=== PATIENT | female | born 1955 | race Caucasian/White ===

== ENCOUNTER 2018-04-12 09:17 | Emergency (ER) | payer BC ==
[2018-04-12 09:32] VITALS: BP 153/75
--- NOTE | 2018-04-12 10:37 | UC ---
Throat Pain/Nasal Alejandro HPI - HPI Summary HPI Summary: sore throat x 3 days + nasal congestion , pnd, no fever, no chills no cough - History of Current Complaint Chief Complaint: UCGeneralIllness Stated Complaint: ST,[place],CONGESTION Time Seen by Provider: 04/12/18 09:35 Hx Obtained From: Patient ?: No Onset/Duration: Gradual Onset, Lasting Days - 3, Still Present Severity: Moderate Pain Intensity: 3 Pain Scale Used: 0-10 Numeric Cough: None Associated Signs & Symptoms: Positive: Nasal Discharge. Negative: Dysphagia, FB Sensation, Drooling, Wheezing, Hoarseness, Sinus Discomfort, Fever, Vomiting , Rash - Allergies/Home Medications Allergies/Adverse Reactions: Allergies Allergy/AdvReac Type Severity Reaction Status Date / Time No Known Allergies Allergy Verified 04/12/18 09:29 Home Medications: Home Medications D-Methorphan/PE/Acetaminophen [[place] Plus Day Col] 1 cap PO SEE INSTRUCTIONS PRN 04/12/18 [History Confirmed 04/12/18] Dextromethorphan Hb/Doxylamine [Robitussin Nighttime Cough Dm] 10 ml PO Q6H PRN 04/12/18 [History Confirmed 04/12/18] Omeprazole CAP* [Prilosec CAP* 20 MG] 20 mg PO BID 04/12/18 [History Confirmed 04/12/18] Rosuvastatin Calcium 10 mg PO DAILY 04/12/18 [History Confirmed 04/12/18] PMH/Surg Hx/FS Hx/Imm Hx GI/ History: Gastroesophageal Reflux - Surgical History Surgical History: Yes Surgery Procedure, Year, and Place: C-Sections x 2 - Family History Known Family History: Negative: Diabetes - Social History Alcohol Use: Occasionally Substance Use Type: None Smoking Status (MU): Never Smoked Tobacco Review of Systems Constitutional: Negative Skin: Negative Eyes: Negative ENT: Sore Throat, Nasal Discharge Respiratory: Negative Cardiovascular: Negative Is Patient Immunocompromised?: No All Other Systems Reviewed And Are Negative: Yes Physical Exam Triage Information Reviewed: Yes Appearance: Well-Appearing, No Pain Distress, Well-Nourished Vital Signs: Initial Vital Signs Temp 97.5 F 04/12/18 09:27 Pulse 85 04/12/18 09:27 Resp 16 04/12/18 09:27 BP 153/75 04/12/18 09:27 Pulse Ox 99 04/12/18 09:27 Vital Signs Reviewed: Yes Eye Exam: Normal Eyes: Positive: Conjunctiva Clear ENT: Positive: Normal ENT inspection, Hearing grossly normal, Pharyngeal erythema, Nasal drainage. Negative: TM bulging, TM dull, TM red, Tonsillar swelling, Tonsillar exudate Neck: Positive: Supple, Nontender, No Lymphadenopathy Respiratory: Positive: Chest non-tender, Lungs clear, Normal breath sounds Cardiovascular: Positive: RRR, No Murmur, Pulses Normal Abdominal Exam: Normal Skin Exam: Normal Throat Pain/Nasal Course/Dx - Differential Dx/Diagnosis Provider Diagnoses: phayngitis Discharge - Sign-Out/Discharge Documenting (check all that apply): Patient Departure All imaging exams completed and their final reports reviewed: No Studies - Discharge Plan Condition: Stable Disposition: HOME Patient Education Materials: Pharyngitis (ED) Referrals: Milton Monroy MD [Primary Care Provider] - If Needed Additional Instructions: viral illness no need for antibiotic - Billing Disposition and Condition Condition: STABLE Disposition: Home
== END 2018-04-12 09:43 | disposition home or self-care (01) ==
LOC: UCCORT 09:17
DX: J02.9 Acute pharyngitis, unspecified (principal); K21.9 Gastro-esophageal reflux disease without esophagitis
CPT/HCPCS: 99211; G0463

== ENCOUNTER 2018-04-17 11:58 | Emergency (ER) | payer BC ==
[2018-04-17 12:22] VITALS: BP 152/86
--- NOTE | 2018-04-17 12:51 | UC ---
Throat Pain/Nasal Alejandro HPI - HPI Summary HPI Summary: Pt c/o ST and left ear pain. ST X 7 days. Ear pain X 3 days. - History of Current Complaint Chief Complaint: UCGeneralIllness Stated Complaint: SORE THROAT,EAR PAIN (L) Time Seen by Provider: 04/17/18 12:44 Hx Obtained From: Patient ?: No Onset/Duration: Sudden Onset, Lasting Days, Still Present Severity: Moderate Pain Intensity: 6 Cough: None Associated Signs & Symptoms: Positive: Dysphagia - Epiglottits Risk Factors Epiglottis Risk Factors: Sudden Onset - Allergies/Home Medications Allergies/Adverse Reactions: Allergies Allergy/AdvReac Type Severity Reaction Status Date / Time No Known Allergies Allergy Verified 04/12/18 09:29 Home Medications: Home Medications Ibuprofen [Advil] 800 mg PO ONCE 04/17/18 [History Confirmed 04/17/18] PMH/Surg Hx/FS Hx/Imm Hx Previously Healthy: Yes - Surgical History Surgical History: Yes Surgery Procedure, Year, and Place: C-Sections x 2 - Family History Known Family History: Negative: Diabetes - Social History Occupation: Employed Full-time Lives: With Family Alcohol Use: Occasionally Substance Use Type: None Smoking Status (MU): Never Smoked Tobacco Have You Smoked in the Last Year: No Review of Systems All Other Systems Reviewed And Are Negative: Yes Constitutional: Positive: Chills Skin: Positive: Negative Eyes: Positive: Negative ENT: Positive: Sore Throat, Ear Ache Respiratory: Positive: Negative Cardiovascular: Positive: Negative Gastrointestinal: Positive: Negative Genitourinary: Positive: Negative Motor: Positive: Negative Neurovascular: Positive: Negative Musculoskeletal: Positive: Negative Neurological: Positive: Negative Psychological: Positive: Negative Is Patient Immunocompromised?: No Physical Exam Triage Information Reviewed: Yes Appearance: Well-Appearing Vital Signs: Initial Vital Signs Temp 98.4 F 04/17/18 12:14 Pulse 91 04/17/18 12:14 Resp 17 04/17/18 12:14 BP 152/86 04/17/18 12:14 Pulse Ox 100 04/17/18 12:14 Vital Signs Reviewed: Yes Eye Exam: Normal ENT: Positive: Pharyngeal erythema, TM bulging - left Dental Exam: Normal Neck exam: Normal Respiratory Exam: Normal Cardiovascular Exam: Normal Musculoskeletal Exam: Normal Neurological Exam: Normal Psychological Exam: Normal Skin Exam: Normal Throat Pain/Nasal Course/Dx - Differential Dx/Diagnosis Differential Diagnosis/HQI/PQRI: Pharyngitis, Tonsillitis, URI Provider Diagnoses: pharyngitis Discharge - Sign-Out/Discharge Documenting (check all that apply): Patient Departure All imaging exams completed and their final reports reviewed: No Studies - Discharge Plan Condition: Stable Disposition: HOME Prescriptions: Amoxicillin PO (*) [Amoxicillin 500 MG CAP*] 500 mg PO Q12H #14 cap Guaifenesin/Pseudoephedrne HCl [Mucinex D ER 600-60 mg Tablet] 1 each PO Q12H # 14 tab.er.12h Patient Education Materials: Pharyngitis (ED), Earache (ED) Referrals: Milton Monroy MD [Primary Care Provider] - If Needed - Billing Disposition and Condition Condition: STABLE Disposition: Home - Attestation Statements Provider Attestation: Per institutional requirements, I have reviewed the chart, however, I was not consulted specifically or made aware of this patient by the midlevel provider. I did not personally evaluate, interact with , or disposition this patient.
== END 2018-04-17 12:58 | disposition home or self-care (01) ==
LOC: UCCORT 11:58
DX: J02.9 Acute pharyngitis, unspecified (principal)
CPT/HCPCS: 99212; G0463

== ENCOUNTER 2019-07-27 09:58 | Emergency (ER) | payer BC ==
[2019-07-27 10:44] VITALS: BP 145/76
[2019-07-27 11:35] LABS: Influenza A Molecular Negative (Negative); Influenza B Molecular Negative (Negative)
--- NOTE | 2019-07-27 11:43 | UC ---
Respiratory Complaint HPI - HPI Summary HPI Summary: 64-year-old female presents with flulike illness for 5 days. Patient states she 's had cough and congestion with nasal congestion that is not improving. Exercise/exertion worsen symptoms. Rest improve her symptoms. She denies any chest pains or palpitations or shortness of breath with exertion. also has a cold sore. non productive cough that is improving she states - History of Current Complaint Chief Complaint: UCGeneralIllness Stated Complaint: CONGESTION, COLD SORES Time Seen by Provider: 07/27/19 11:39 Hx Obtained From: Patient Onset/Duration: Gradual Onset Pain Intensity: 0 - Allergies/Home Medications Allergies/Adverse Reactions: Allergies Allergy/AdvReac Type Severity Reaction Status Date / Time No Known Allergies Allergy Verified 07/27/19 10:39 Home Medications: Home Medications Omeprazole CAP (NF) [Prilosec CAP* 20 MG] 20 mg PO BID 04/12/18 [History Confirmed 07/27/19] Rosuvastatin Calcium 10 mg PO DAILY 04/12/18 [History Confirmed 07/27/19] Valacyclovir HCl [Valacyclovir] 1,000 mg PO TID #21 tablet 07/27/19 [Rx] guaiFENesin 100 mg/5 ml LIQ [Robitussin 100 mg/5ml LIQ] 1 dose PO ONCE 07/27/19 [History Confirmed 07/27/19] guaiFENesin [Mucinex] 1 dose PO BID 07/27/19 [History Confirmed 07/27/19] PMH/Surg Hx/FS Hx/Imm Hx Previously Healthy: Yes Endocrine History: Dyslipidemia GI/ History: Gastroesophageal Reflux - Surgical History Surgical History: Yes Surgery Procedure, Year, and Place: c-sections x 2 - Family History Known Family History: Negative: Diabetes - Social History Alcohol Use: Occasionally Substance Use Type: None Smoking Status (MU): Never Smoked Tobacco Have You Smoked in the Last Year: No Review of Systems All Other Systems Reviewed And Are Negative: Yes Constitutional: Positive: Fatigue ENT: Positive: Nasal Discharge, Sinus Congestion Respiratory: Positive: Cough Musculoskeletal: Positive: Myalgia Neurological/Mental Status: Positive: Headache Is Patient Immunocompromised?: No Physical Exam Triage Information Reviewed: Yes Appearance: Well-Appearing, No Pain Distress, Well-Nourished Vital Signs: Initial Vital Signs Temp 97.9 F 07/27/19 10:40 Pulse 81 07/27/19 10:40 Resp 15 07/27/19 10:40 BP 145/76 07/27/19 10:40 Pulse Ox 100 07/27/19 10:40 Eye Exam: Normal ENT Exam: Normal ENT: Positive: Nasal congestion Dental Exam: Normal Neck exam: Normal Neck: Positive: 1 Respiratory Exam: Normal Cardiovascular Exam: Normal Abdominal Exam: Normal Musculoskeletal Exam: Normal Neurological Exam: Normal Psychological Exam: Normal Skin Exam: Normal Respiratory Course/Dx - Course Course Of Treatment: viral in nature. supportive care. give valtrex for her cold sores. resume floanase. see pcp in 2-3 days. rto prn. she is agreeable to plan - Differential Dx/Diagnosis Differential Diagnosis/HQI/PQRI: Bronchitis, Influenza, Lower Resp Infection, MRSA, Sinusitis Provider Diagnosis: URI (upper respiratory infection), Cold sore Discharge ED - Sign-Out/Discharge Documenting (check all that apply): Patient Departure All imaging exams completed and their final reports reviewed: No Studies - Discharge Plan Condition: Good Disposition: HOME Prescriptions: Valacyclovir HCl [Valacyclovir] 1,000 mg PO TID #21 tablet Patient Education Materials: Upper Respiratory Infection (ED) Referrals: Milton Monroy MD [Primary Care Provider] - 3 Days Additional Instructions: You are given valacyclovir for your cold sores as well. - Billing Disposition and Condition Condition: GOOD Disposition: Home
== END 2019-07-27 12:04 | disposition home or self-care (01) ==
LOC: UCCORT 09:58
DX: J06.9 Acute upper respiratory infection, unspecified (principal); B00.1 Herpesviral vesicular dermatitis; K21.9 Gastro-esophageal reflux disease without esophagitis; E78.5 Hyperlipidemia, unspecified; R51 Headache; Z79.899 Other long term (current) drug therapy
CPT/HCPCS: 99212; G0463

== ENCOUNTER 2022-03-10 09:41 | Observation (INO) ==
[~2022-03-10 09:41] MED LIST: Buffered Lidocaine 1% SYRIN 1 ml INTRADERM ONE; Famotidine IV 10 MG/ML 2 ml VIAL (20 mg) IV ONE; Lactated Ringers 1000 ml BAG 1,000 ML IV SCH
[2022-03-10] MEDS ORDERED: Famotidine IV 10 MG/ML 2 ml VIAL (20 mg) ONE (10:30)
[2022-03-10] MEDS ORDERED: ceFAZolin 2 GM PREMIX 2 GM/50 ML BAG ONE (10:30)
[2022-03-10] MEDS ORDERED: Buffered Lidocaine 1% SYRIN 1 ml INTRADERM ONE (10:30)
[2022-03-10] MEDS ORDERED: Lidocaine 2% PF 5 ML VIAL ONE ×2 (12:10→12:14)
[2022-03-10] MEDS ORDERED: fentaNYL 100 mcg/2 ml 50 MCG/ML VIAL ONE ×3 (12:10→16:00)
[2022-03-10] MEDS ORDERED: ROPIVACAINE 5 MG/ML 30 ML BTL (0.5%) ONE (12:10)
[2022-03-10] MEDS ORDERED: Midazolam 5 mg/5 ml VIAL 1 mg/ml 5 ml VIAL (5 mg) ONE (12:10)
[2022-03-10] MEDS ORDERED: Propofol 10 MG/ML 20 ML BTL ONE (12:14)
[2022-03-10] MEDS ORDERED: Ropivacaine 5 MG/ML 20 ML VIAL 0.5% (100 MG) ONE (12:42)
[2022-03-10] MEDS ORDERED: Ketamine HCL 50 mg/ml 10 ml VIAL (500 MG) ONE (12:57)
[2022-03-10] MEDS ORDERED: Ondansetron 4 mg VIAL 2 MG/ML 2 ml VIAL ONE (13:26)
[2022-03-10] MEDS ORDERED: Dexamethasone IV 4 MG/ML VIAL 1 ml VIAL ONE (13:26)
[2022-03-10] MEDS ORDERED: Phenylephrine 40 mcg/mL 10mL (400mcg) SYRINGE ONE (13:42)
[2022-03-10] MEDS ORDERED: Morphine 2 MG/ML SYRINGE IV PRN (13:58)
[2022-03-10] MEDS ORDERED: Lactulose 30 ml UDC PO PRN (13:58)
[2022-03-10] MEDS ORDERED: Magnesium Hydroxide LIQ 30 ML UDC PO PRN (13:58)
[2022-03-10] MEDS ORDERED: Ondansetron ODT 4 mg TAB 4 MG TAB PO PRN (13:58)
[2022-03-10] MEDS ORDERED: Ondansetron 4 mg VIAL 2 MG/ML 2 ml VIAL IV PRN ×2 (13:58→15:12)
[2022-03-10] MEDS ORDERED: Acetaminophen IV 1 GM/100ML 1,000 MG/100 ML BAG IV ONE (14:56)
[2022-03-10] MEDS ORDERED: Naloxone 0.4 mg VIAL 0.4 mg/ml 1 ml VIAL IV PRN (15:12)
[2022-03-10] MEDS: fentaNYL 100 mcg/2 ml 50 MCG/ML VIAL IV PRN ×2 (16:03→16:45)
[2022-03-10] MEDS: Lactated Ringers 1000 ml BAG 1,000 ML IV SCH (19:04)
[2022-03-10] MEDS: Magnesium Hydroxide LIQ 30 ML UDC PO SCH (21:51)
[2022-03-10] MEDS: ceFAZolin 1 GM ADVAN 1 GM in NS 0.9% 50 ML 50 ML IVPB SCH (22:13)
[2022-03-11] MEDS: ceFAZolin 1 GM ADVAN 1 GM in NS 0.9% 50 ML 50 ML IVPB SCH ×2 (06:02→12:43)
[2022-03-11 06:10] LABS: Hematocrit 27 % (35-47); Hemoglobin 9.4 g/dL (12.0-16.0); Mean Platelet Volume 7.4 fL (7.4-10.4); Platelet Count 245 10^3/uL (150-450)
[2022-03-11] MEDS: Lactated Ringers 1000 ml BAG 1,000 ML IV SCH (06:28)
[2022-03-11 06:37] LABS: Calcium 8.4 mg/dL (8.6-10.3); Potassium 4.1 mmol/L (3.5-5.0)
[2022-03-11 06:43] LABS: eGFR CKD-EPI 90.6 (>60)
[2022-03-11] MEDS: Magnesium Hydroxide LIQ 30 ML UDC PO SCH (08:13)
[2022-03-11] MEDS ORDERED: Vitamin THERAPEUTIC TAB PO SCH (09:00)
[2022-03-11 11:29] VITALS: BP 129/65
== END 2022-03-11 13:20 | disposition home or self-care (01) ==
LOC: OR 09:41 → SSU 09:41
PROVIDERS: ADMIT Orthopaedic Surgery Adult Reconstructive Orthopaedic Surgery; ATTEND Orthopaedic Surgery Adult Reconstructive Orthopaedic Surgery